=== PATIENT | female | born 1975 | race Two or more races ===

== ENCOUNTER 2016-07-17 10:24 | Emergency (ER) | payer MEDICAID ==
[~2016-07-17] VITALS: Ht 152.4 cm; Wt 77.1 kg
[2016-07-17] MEDS ORDERED: HYDROmorphone HCL 2 MG/ML VL IV ONE ×2 (11:15→14:00)
[2016-07-17] MEDS ORDERED: ONDANSETRON HCL 4 MG/2 ML VIAL IV ONE ×2 (11:15→14:00)
[2016-07-17] MEDS ORDERED: KETOROLAC TROMETH 30 MG/ML 1ML VIAL IV ONE ×2 (12:45→18:00)
[2016-07-17 18:29] VITALS: BP 111/77
== END 2016-07-17 18:34 | disposition short-term general hospital (02) ==
LOC: EDBD 10:24 → ER 10:28
DX: S82.141A Displaced bicondylar fracture of right tibia, initial encounter for closed fracture (principal); W01.0XXA Fall on same level from slipping, tripping and stumbling without subsequent striking against object, initial encounter; Y93.89 Activity, other specified; Y92.89 Other specified places as the place of occurrence of the external cause; Y99.8 Other external cause status
CPT/HCPCS: 29505; 51702; 73560; 73700; 96374; 96375; 96376; 99285; J1170; J1885; J2405

== ENCOUNTER 2020-05-06 15:40 | Inpatient (IN) | payer MEDICAID ==
[~2020-05-06] VITALS: Ht 160 cm; Wt 90.3 kg
[2020-05-06] MEDS ORDERED: MORPHINE SULF INJ 2 MG/ML SYRINGE 1ML IV ONE ×3 (16:00→16:30)
[2020-05-06] MEDS ORDERED: ONDANSETRON HCL 4 MG/2 ML VIAL IV ONE (16:00)
[2020-05-06] MEDS ORDERED: ONDANSETRON HCL 4 MG/2 ML VIAL ONE (16:01)
[2020-05-06] MEDS ORDERED: FAMOTIDINE (10MG/ML) 2ML VL IV ONE (16:30)
[2020-05-06] MEDS ORDERED: SODIUM CHLORIDE 0.9% 1,000 ML IV ONE (16:30)
[2020-05-06 16:34] LABS: Basophils # (auto) 0 10 ^3/uL (0-0.2); Basophils % (auto) 0.2 % (0.0-2.0); Eosinophils # (auto) 0 10 ^3/uL (0-0.8); Hematocrit 40.1 % (36.0-46.0); Hemoglobin 13.4 g/dL (12.2-16.2); Lymphocytes # (auto) 1.3 10 ^3/uL (0.4-5.4); Lymphocytes % (auto) 7.8 % (10.0-50.0); Mean Corpuscular Hemoglobin 30.3 pg (28.0-32.0); Mean Corpuscular Hgb Conc. 33.4 g/dL (32.0-36.0); Mean Corpuscular Volume 90.9 fL (80.0-100.0); Monocytes # (auto) 0.5 10 ^3/uL (0-1.3); Monocytes % (auto) 3.2 % (0.0-12.0); Neutrophils # (auto) 14.2 10 ^3/uL (1.6-8.6); Neutrophils % (auto) 88.8 % (37.0-80.0); Platelet Count (auto) 423 10^3/uL (140-450); Red Blood Cells 4.41 10^6/uL (4.0-5.20); Red Cell Distribution Width 13.4 % (11.8-14.3)
[2020-05-06 16:42] LABS: Albumin 3.6 g/dL (3.4-5.0); Calcium 8.5 mg/dL (8.5-10.1); Potassium 3.4 mmol/L (3.5-5.1)
[2020-05-06 16:45] LABS: BUN/Creatinine Ratio 20.6; Bilirubin, Total 0.5 mg/dL (0.2-1.0); Total Protein 8.2 g/dL (6.4-8.2)
[2020-05-06 16:55] LABS: Urine Bacteria FEW /hpf (None Seen); Urine Blood Negative /uL (Negative); Urine Mucus FEW (None Seen); Urine Specific Gravity 1.031 (1.001-1.035); Urine WBC 2 /hpf (0 - 5)
[2020-05-06] MEDS ORDERED: IOHEXOL 300 MG/ML 100ML BOTTLE IJ ONE ×2 (16:57→19:37)
[2020-05-06] MEDS ORDERED: cefTRIAXone 1GM/50ML D5W 50 ML IV ONE (17:45)
[2020-05-06] MEDS ORDERED: ACETAMINOPHEN 650 MG RECT SUPP PR PRN (18:45)
[2020-05-06] MEDS ORDERED: MORPHINE SULF INJ 2 MG/ML SYRINGE 1ML IV PRN (18:45)
[2020-05-06] MEDS ORDERED: NITROGLYCERIN 0.4 MG SL TAB SL PRN (18:45)
[2020-05-06] MEDS ORDERED: ONDANSETRON HCL 4 MG/2 ML VIAL IV PRN (18:45)
[2020-05-06] MEDS ORDERED: ALUM1SUS16 PO (19:07)
[2020-05-06] MEDS: D5W/SOD CHL 0.45%/KCL 20MEQ 1,000 ML IV SCH (20:36)
[2020-05-06] MEDS: MORPHINE SULF INJ 2 MG/ML SYRINGE 1ML IV PRN (20:50)
[2020-05-06] MEDS: metroNIDAZOLE 500MG/100ML 100 ML IV SCH (22:11)
[2020-05-07] MEDS: D5W/SOD CHL 0.45%/KCL 20MEQ 1,000 ML IV SCH ×3 (03:22→18:05)
[2020-05-07] MEDS: metroNIDAZOLE 500MG/100ML 100 ML IV SCH ×3 (06:44→21:52)
[2020-05-07 08:45] LABS: INR 0.98 (0.9-1.15); Partial Thromboplastin Time 27.7 sec (23.0-31.2)
[2020-05-07 08:47] LABS: BUN/Creatinine Ratio 17.2; Calcium 7.9 mg/dL (8.5-10.1); Potassium 3.6 mmol/L (3.5-5.1)
[2020-05-07 08:51] LABS: Basophils # (auto) 0 10 ^3/uL (0-0.2); Basophils % (auto) 0.1 % (0.0-2.0); Eosinophils # (auto) 0.1 10 ^3/uL (0-0.8); Eosinophils % (auto) 0.6 % (0.0-7.0); Hematocrit 33.3 % (36.0-46.0); Hemoglobin 11.5 g/dL (12.2-16.2); Lymphocytes % (auto) 20.9 % (10.0-50.0); Mean Corpuscular Hemoglobin 30.7 pg (28.0-32.0); Mean Corpuscular Hgb Conc. 34.5 g/dL (32.0-36.0); Mean Corpuscular Volume 88.9 fL (80.0-100.0); Monocytes # (auto) 0.8 10 ^3/uL (0-1.3); Monocytes % (auto) 8.3 % (0.0-12.0); Neutrophils # (auto) 6.8 10 ^3/uL (1.6-8.6); Neutrophils % (auto) 70.1 % (37.0-80.0); Nucleated Red Blood Cells % 0.1 %; Platelet Count (auto) 372 10^3/uL (140-450); Red Blood Cells 3.75 10^6/uL (4.0-5.20); Red Cell Distribution Width 13.3 % (11.8-14.3); White Blood Cell 9.7 10^3/uL (4.4-10.8)
[2020-05-07 10:00] VITALS: BP 109/85
[2020-05-07] MEDS: FAMOTIDINE (10MG/ML) 2ML VL IV SCH (10:58)
[2020-05-07] MEDS: cefTRIAXone 1GM/50ML D5W 50 ML IV SCH (10:58)
[2020-05-07 16:00] VITALS: BP 105/52
[2020-05-07] MEDS: MORPHINE SULF INJ 2 MG/ML SYRINGE 1ML IV PRN (18:04)
[2020-05-07 23:32] VITALS: BP 92/50
[2020-05-08] MEDS: D5W/SOD CHL 0.45%/KCL 20MEQ 1,000 ML IV SCH ×4 (02:29→23:15)
[2020-05-08] MEDS: MORPHINE SULF INJ 2 MG/ML SYRINGE 1ML IV PRN ×3 (04:22→17:31)
[2020-05-08] MEDS: metroNIDAZOLE 500MG/100ML 100 ML IV SCH ×3 (05:31→22:00)
[2020-05-08 05:48] VITALS: BP_SYST 123; BP_SYST 99; BP_DIAS 56; BP_DIAS 62
[2020-05-08 06:50] LABS: Magnesium 2.7 mg/dL (1.6-2.6); Potassium 3.7 mmol/L (3.5-5.1)
[2020-05-08 08:00] VITALS: BP 107/58
[2020-05-08] MEDS: cefTRIAXone 1GM/50ML D5W 50 ML IV SCH (09:28)
[2020-05-08] MEDS: FAMOTIDINE (10MG/ML) 2ML VL IV SCH (09:29)
[2020-05-08] MEDS ORDERED: BUPIVACAINE 0.25% INJ 50ML VIAL ONE (14:06)
[2020-05-08] MEDS ORDERED: SUCCINYLCHOLINE CHLORIDE 20 MG/ML 10ML VIAL IV ONE (14:10)
[2020-05-08] MEDS ORDERED: ceFAZolin 1GM/50ML 50 ML IV ONE (14:26)
[2020-05-08] MEDS ORDERED: ONDANSETRON HCL 4 MG/2 ML VIAL IV PRN (15:30)
[2020-05-08] MEDS ORDERED: ACCU-CHEK COMFORT CURVE STRIP VI ONE (15:30)
[2020-05-08] MEDS ORDERED: ePHEDrine SULFATE 50 MG/ML AMP IV PRN (15:30)
[2020-05-08] MEDS ORDERED: LABETALOL HCL 5 MG/ML 4ML SYRINGE IV PRN (15:30)
[2020-05-08] MEDS ORDERED: MIDAZOLAM HCL 1MG/1ML-2 ML VIAL IV PRN (15:30)
[2020-05-08] MEDS ORDERED: MORPHINE SULFATE 4 MG/ML SYR/VIAL IV PRN (15:30)
[2020-05-08] MEDS ORDERED: KETOROLAC TROMETH 30 MG/ML 1ML VIAL IV ONE (15:30)
[2020-05-08] MEDS: HYDROmorphone HCL 2 MG/ML VL IV PRN ×2 (16:05→16:20)
[2020-05-08 16:45] VITALS: BP 123/53
[2020-05-08 22:00] VITALS: BP 86/44
[2020-05-09 05:00] VITALS: BP 96/56
[2020-05-09] MEDS: metroNIDAZOLE 500MG/100ML 100 ML IV SCH ×3 (05:49→21:30)
[2020-05-09] MEDS: MORPHINE SULF INJ 2 MG/ML SYRINGE 1ML IV PRN ×2 (06:13→10:30)
[2020-05-09 08:00] VITALS: BP 109/60
[2020-05-09 08:05] LABS: Basophils # (auto) 0 10 ^3/uL (0-0.2); Basophils % (auto) 0.1 % (0.0-2.0); Eosinophils # (auto) 0 10 ^3/uL (0-0.8); Hematocrit 32.7 % (36.0-46.0); Hemoglobin 11.3 g/dL (12.2-16.2); Lymphocytes # (auto) 1.5 10 ^3/uL (0.4-5.4); Lymphocytes % (auto) 14.5 % (10.0-50.0); Mean Corpuscular Hemoglobin 30.8 pg (28.0-32.0); Mean Corpuscular Hgb Conc. 34.6 g/dL (32.0-36.0); Monocytes # (auto) 0.7 10 ^3/uL (0-1.3); Monocytes % (auto) 6.9 % (0.0-12.0); Neutrophils # (auto) 8.1 10 ^3/uL (1.6-8.6); Neutrophils % (auto) 78.5 % (37.0-80.0); Platelet Count (auto) 384 10^3/uL (140-450); Red Blood Cells 3.67 10^6/uL (4.0-5.20); Red Cell Distribution Width 12.9 % (11.8-14.3); White Blood Cell 10.4 10^3/uL (4.4-10.8)
[2020-05-09 08:29] LABS: Potassium 3.7 mmol/L (3.5-5.1)
[2020-05-09 08:34] LABS: Albumin 2.9 g/dL (3.4-5.0); Bilirubin, Total 0.4 mg/dL (0.2-1.0); Calcium 8.2 mg/dL (8.5-10.1); Total Protein 6.9 g/dL (6.4-8.2)
[2020-05-09] MEDS: cefTRIAXone 1GM/50ML D5W 50 ML IV SCH (09:22)
[2020-05-09] MEDS: FAMOTIDINE (10MG/ML) 2ML VL IV SCH (10:18)
[2020-05-09] MEDS: D5W/SOD CHL 0.45%/KCL 20MEQ 1,000 ML IV SCH ×2 (11:43→12:00)
[2020-05-09 16:00] VITALS: BP 110/56
[2020-05-09 22:00] VITALS: BP 97/60
[2020-05-10 05:00] VITALS: BP 105/60
[2020-05-10] MEDS: D5W/SOD CHL 0.45%/KCL 20MEQ 1,000 ML IV SCH (06:22)
[2020-05-10] MEDS: metroNIDAZOLE 500MG/100ML 100 ML IV SCH (06:22)
[2020-05-10 08:00] VITALS: BP 103/67
[2020-05-10 08:07] LABS: Potassium 3.8 mmol/L (3.5-5.1)
[2020-05-10 08:09] LABS: Bilirubin, Total 0.4 mg/dL (0.2-1.0)
[2020-05-10 08:10] LABS: Hematocrit 34.1 % (36.0-46.0); Hemoglobin 11.8 g/dL (12.2-16.2)
[2020-05-10] MEDS: cefTRIAXone 1GM/50ML D5W 50 ML IV SCH (08:41)
[2020-05-10] MEDS: FAMOTIDINE (10MG/ML) 2ML VL IV SCH (10:10)
[2020-05-10] MEDS ORDERED: LEVO500T31 PO (14:02)
[2020-05-10] MEDS ORDERED: METR500T PO (14:02)
[2020-05-10 16:00] VITALS: BP 108/60
[2020-05-10 16:58] VITALS: BP 115/74
== END 2020-05-10 18:37 | disposition home or self-care (01) | DRG 710 ==
LOC: ER 15:40 → TELE 18:45 → TELE-WESTW 05-07 09:18 → WEST WING 05-07 09:34
PROVIDERS: ADMIT Nurse Practitioner Acute Care; ATTEND Internal Medicine
PROC: 0FT44ZZ Resection of Gallbladder, Percutaneous Endoscopic Approach (ICD-10-PCS; principal; 2020-05-08 14:30)
DX: A41.9 Sepsis, unspecified organism (principal); K81.0 Acute cholecystitis; E87.1 Hypo-osmolality and hyponatremia; E87.6 Hypokalemia; E66.9 Obesity, unspecified; K65.1 Peritoneal abscess; Z20.822 Contact with and (suspected) exposure to COVID-19; Z82.49 Family history of ischemic heart disease and other diseases of the circulatory system; Z83.3 Family history of diabetes mellitus; Z68.36 Body mass index [BMI] 36.0-36.9, adult; K76.0 Fatty (change of) liver, not elsewhere classified
CPT/HCPCS: 36415; 71045; 74177; 76705; 80048; 80053; 81001; 81025; 82150; 82247; 83605; 83690; 83735; 84132; 85014; 85018; 85025; 85610; 85730; 86850; 86900; 86901; 87040; 87086; 87426; 93005; 96361; 96365; 96375; 96376; G0378; J0330; J0690; J0696; J2405; J3490

== ENCOUNTER 2021-09-30 13:46 | Emergency (ER) | payer OTHER, MEDICAID ==
[~2021-09-30] VITALS: Ht 147.3 cm; Wt 90.7 kg
[~2021-09-30 13:46] MED LIST: ALUM1SUS16 PO; LEVO500T31 PO; METR500T PO
[2021-09-30 14:50] LABS: Urine Bacteria NONE SEEN /hpf (None Seen); Urine Blood 3+ /uL (Negative); Urine Specific Gravity 1.024 (1.001-1.035); Urine WBC 16 /hpf (0 - 5)
[2021-09-30] MEDS ORDERED: NITR-87 PO (20:12)
[2021-09-30] MEDS ORDERED: IBU600T PO (20:12)
[2021-09-30 20:20] VITALS: BP 120/57
== END 2021-09-30 20:20 | disposition home or self-care (01) ==
LOC: ER 13:46
DX: S33.5XXA Sprain of ligaments of lumbar spine, initial encounter (principal); N39.0 Urinary tract infection, site not specified; X58.XXXA Exposure to other specified factors, initial encounter; Y93.89 Activity, other specified; Y92.89 Other specified places as the place of occurrence of the external cause; Y99.8 Other external cause status
CPT/HCPCS: 74176; 81001